=== PATIENT | female | born 1965 | race Caucasian/White ===

== ENCOUNTER 2019-03-22 09:14 | Day surgery (SDC) | payer OTHER ==
[~2019-03-22 09:14] MED LIST: AMOX500 PO; ATEN25 PO; BACL10 PO; CELE200 PO; CEPH500 PO; CYCL10 PO; DIAZ5 PO; ESTR2 PO; GABA300 PO; HYDACE5 PO; Hydrocodone-Ap1 EA23 PO; LISHYD1012 PO; LORA1 PO; METO25ER PO; PAROXETINE CR37.5 MG PO; RXHYDACE PO; TRAM50 PO
== END 2019-03-22 22:58 | disposition home or self-care (01) ==
LOC: CT 09:14
PROVIDERS: Radiology Diagnostic Radiology
PROC: 0TB03ZX Excision of Right Kidney, Percutaneous Approach, Diagnostic (ICD-10-PCS; principal; 2019-03-22 11:00)
DX: N11.9 Chronic tubulo-interstitial nephritis, unspecified (principal); N18.3 Chronic kidney disease, stage 3 (moderate); I12.9 Hypertensive chronic kidney disease with stage 1 through stage 4 chronic kidney disease, or unspecified chronic kidney disease; D50.9 Iron deficiency anemia, unspecified; Z79.899 Other long term (current) drug therapy; Z79.52 Long term (current) use of systemic steroids; Z87.891 Personal history of nicotine dependence; Z88.2 Allergy status to sulfonamides
CPT/HCPCS: 50200; 77012; 88305; 88313; 88329; 88346; 88348; 88350

== ENCOUNTER → 2022-02-17 | Outpatient (CLI) | payer OTHER | END | disposition home or self-care (01) | LOC: LAB 09:35 → LAB SHORT 09:35 | DX: R30.9 Painful micturition, unspecified (principal) | CPT/HCPCS: 87086 ==